=== PATIENT | male | born 2000 | race Caucasian/White ===

== ENCOUNTER 2019-02-17 16:10 | Emergency (ER) | payer OTHER ==
[~2019-02-17] VITALS: Wt 54.4 kg
[2019-02-17 16:17] VITALS: BP 113/72; PULSE 50; RESP 16
[2019-02-17] MEDS ORDERED: CYCL10TA7 PO (17:41)
[2019-02-17] MEDS ORDERED: NAPR-985 PO (17:41)
--- NOTE | 2019-02-18 02:14 | ERD ---
ER Documentation Chief Complaint Chief Complaint LOW BACK PAIN RADIATING TO UPPER BACK. NO TRAUMA. ONSET TODAY. NO DYSURIA HPI 18-year-old male presenting to the emergency department complaining of mid to low back pain which began today. He states yesterday he was doing heavy lifting at work which most likely caused his pain. He reports intermittent pain rated 7/10 in severity. He took Advil at home with some relief. He denies any loss o f bowel or bladder function, hematuria, fevers, chills, or other symptoms at this time. ROS All systems reviewed and are negative except as per history of present illness. Medications Home Meds Active Scripts Naproxen* (Naprosyn*) 500 Mg Tablet, 500 MG PO BID PRN for PAIN AND/OR INFLAMMATION, #30 TAB Prov:STONE SCANLON PA-C 02/17/19 Cyclobenzaprine Hcl* (Cyclobenzaprine Hcl*) 10 Mg Tablet, 10 MG PO TID, #15 TAB Prov:STONE SCANLON PA-C 02/17/19 Allergies Allergies: Coded Allergies: No Known Drug Allergies (Verified Allergy, Unknown, 02/17/19) PMhx/Soc Medical and Surgical Hx: pt denies Medical Hx History of Surgery: Yes (LAP APPY) FmHx Family History: No diabetes Physical Exam Vitals Vital Signs Date Temp Pulse Resp B/P (MAP) Pulse Ox O2 O2 Flow FiO2 Time Delivery Rate 02/17/19 98.0 50 16 113/72 98 16:17 (86) Physical Exam Const: No acute distress Head: Atraumatic Eyes: Normal Conjunctiva ENT: Normal External Ears, Nose and Mouth. Neck: Full range of motion. No meningismus. Resp: Clear to auscultation bilaterally Cardio: Regular rate and rhythm, no murmurs Abd: Soft, non tender, non distended. Normal bowel sounds Skin: No petechiae or rashes Back: No midline or flank tenderness. Tenderness palpation of the paraspinal muscles of the lumbar spine bilaterally. Ext: No cyanosis, or edema Neur: Awake and alert Psych: Normal Mood and Affect Procedures/MDM 18-year-old male presenting to the emergency department with signs and symptoms most consistent with muscular skeletal back pain. Patient's musculoskeletal symptoms have stabilized while they have been evaluated in the department and are appropriate for outpatient work up. No evidence of cauda equina, cord compression, infiltrative, or infectious etiology. No evidence of life-threatening pathology at time of discharge. Pt/family in agreement with discharge plan/diagnosis. Pt/family advised to return immediately with any new or worsening symptoms. Follow-up with primary care physician within the next 1-2 days. Disclaimer: Inadvertent spelling and grammatical errors are likely due to EHR/dictation software use and do not reflect on the overall quality of patient care. Also, please note that the electronic time recorded on this note does not necessarily reflect the actual time of the patient encounter. Departure Diagnosis: Primary Impression: Back pain Condition: Fair Patient Instructions: Back Pain (Acute Or Chronic) Additional Instructions: Call your primary care doctor TOMORROW for an appointment during the next 1-2 days.See the doctor sooner or return here if your condition worsens before your appointment time. STONE SCANLON PA-C Feb 18, 2019 02:14
== END 2019-02-17 17:57 | disposition home or self-care (01) ==
LOC: FTE 16:10
DX: M54.5 Low back pain (principal)
CPT/HCPCS: 99283